=== PATIENT | female | born 1955 | race Caucasian/White ===

== ENCOUNTER → 2016-07-31 | Outpatient (CLI) | payer OTHER ==
[~2016-07-31] MED LIST: CHOL100010 PO; MULT-506 PO; ZINC1CAP PO
--- NOTE | 2016-07-31 16:46 | MAMMOGRAPHY REPORT ---
BILATERAL DIGITAL SCREENING MAMMOGRAM TOMOSYNTHESIS WITH CAD: 07/31/2016 CLINICAL HISTORY: Asymptomatic. Personal history of left breast cancer. TECHNIQUE: Breast tomosynthesis in addition to standard 2D mammography was performed. Current study was also evaluated with a Computer Aided Detection (CAD) system. COMPARISON: Comparison is made to exams dated: 02/07/2016 mammogram, 08/07/2015 mammogram, 07/31/2015 mammogram, 07/27/2014 mammogram, and 05/31/2013 mammogram - [facility]. BREAST COMPOSITION: There are scattered areas of fibroglandular density in both breasts. FINDINGS: A linear scar marker overlies the upper outer quadrant of the left breast. There is skin irregularity along the surgical scar. There is expected architectural distortion in the upper outer middle one third of the left breast, at the site of prior lumpectomy. 2 calcifications are seen wi thin the architectural distortion that are stable compared to last years mammograms and are most lik [place] benign. No new suspicious mass, unexpected architectural distortion or new suspicious microcalc ifications are seen bilaterally. IMPRESSION: ACR BI-RADS CATEGORY 1: NEGATIVE Stable mammographic appearance of the breasts, including postsurgical changes within the left breast . There is no mammographic evidence of malignancy. A 1 year screening mammogram is recommended. Th e patient will receive written notification of the results. Approximately 10% of breast cancers are not detected with mammography. A negative mammographic repor t should not delay biopsy if a clinically suggestive mass is present. Lynsey Gonzalez M.D. ay/:07/31/2016 16:09:42 Cleaning Professional: Yessi CUELLAR)(Braden), [facility] letter sent: Normal 1/2 BI-RADS Code: ACR BI-RADS Category 1: Negative
== END | disposition home or self-care (01) ==
LOC: C.MAMM 15:39
PROVIDERS: ATTEND Internal Medicine Hematology & Oncology
DX: Z12.31 Encounter for screening mammogram for malignant neoplasm of breast (principal); Z85.3 Personal history of malignant neoplasm of breast

== ENCOUNTER → 2017-08-01 | Outpatient (CLI) | payer OTHER ==
--- NOTE | 2017-08-04 12:43 | MAMMOGRAPHY REPORT ---
BILATERAL DIGITAL SCREENING MAMMOGRAM TOMOSYNTHESIS WITH CAD: 08/01/2017 CLINICAL HISTORY: Routine screening. Patient has no complaints. TECHNIQUE: Breast tomosynthesis in addition to standard 2D mammography was performed. Current study was also evaluated with a Computer Aided Detection (CAD) system. COMPARISON: Comparison is made to exams dated: 07/31/2016 mammogram, 02/07/2016 mammogram, 08/07/2015 u ltrasound, 08/07/2015 mammogram, 07/31/2015 mammogram, and 07/27/2014 mammogram - [facility]. BREAST COMPOSITION: There are scattered areas of fibroglandular density in both breasts. FINDINGS: No suspicious masses, calcifications, or areas of architectural distortion are noted in ei ther breast. There has been no significant interval change compared to prior exams. There are stable post surgical changes in the left upper outer quadrant from prior lumpectomy, including stable densi ty and architectural distortion at the lumpectomy bed. Benign-appearing calcifications at the lumpec maren bed are stable compared to prior exams and are compatible with dystrophic calcifications. Other scattered bilateral benign-appearing calcifications are also stable. IMPRESSION: ACR BI-RADS CATEGORY 2: BENIGN There is no mammographic evidence of malignancy. A 1 year screening mammogram is recommended. The pa tient will receive written notification of the results. Approximately 10% of breast cancers are not detected with mammography. A negative mammographic report should not delay biopsy if a clinically suggestive mass is present. Amanda Farfan M.D. /:08/01/2017 15:20:19 Trench Digger: Dilia JOHANSEN(R)(M), [facility] letter sent: Normal 1/2 BI-RADS Code: ACR BI-RADS Category 2: Benign
== END | disposition home or self-care (01) ==
LOC: C.MAMM 14:59
PROVIDERS: ATTEND Internal Medicine Hematology & Oncology
DX: Z12.31 Encounter for screening mammogram for malignant neoplasm of breast (principal); Z85.3 Personal history of malignant neoplasm of breast